=== PATIENT | female | born 1950 | race Two or more races ===

== ENCOUNTER 2021-06-15 10:44 | Emergency (ER) | payer OTHER ==
[2021-06-15 11:26] VITALS: TEMP 98.3; BMI 29.2
[2021-06-15] MEDS ORDERED: METOCLOPRAMIDE HCL 10 MG TABLET (FP) PO ONE ×2 (12:00→12:08)
[2021-06-15] MEDS ORDERED: ACETAMINOPHEN 500 MG TABLET (FP) PO ONE (12:01)
[2021-06-15] MEDS ORDERED: ACETAMINOPHEN 325 MG TABLET (FP) ONE (12:08)
[2021-06-15] MEDS ORDERED: LIDOCAINE 5% TOPICAL PATCH TP ONE (12:14)
[2021-06-15] MEDS ORDERED: LIDOCAINE 5% TOPICAL PATCH ONE (12:22)
[2021-06-15 13:25] VITALS: BP 124/54; PULSE 61
[2021-06-15] MEDS ORDERED: LIDOCAINE PATCH REMOVAL MC SCH (22:00)
== END 2021-06-15 14:11 | disposition home or self-care (01) ==
LOC: JER 10:44
DX: M54.5 Low back pain (principal); R05 Cough; I10 Essential (primary) hypertension
CPT/HCPCS: 72100-TC-FY; 93005; 93010; 99283-25

== ENCOUNTER 2022-02-21 14:18 | Emergency (ER) | payer OTHER ==
[2022-02-21 14:29] VITALS: TEMP 97.4; BMI 29.2
[2022-02-21] MEDS ORDERED: METOCLOPRAMIDE HCL INJECTION 10 MG/2 ML VIAL IVPB ONE (15:02)
[2022-02-21] MEDS ORDERED: LIDOCAINE 5% TOPICAL PATCH TP ONE (15:02)
[2022-02-21] MEDS ORDERED: ACETAMINOPHEN 1000 MG/100 ML BAG IVPB ONE (15:02)
[2022-02-21 15:57] LABS: BASO % 0.8 % (0-2.0); EOS % 8.1 % (0-4.5); HEMATOCRIT 36.9 % (32.4-45.2); HEMOGLOBIN 12.5 GM/dL (10.7-15.3); LYMPH % 40.1 % (8-40); MCH 31.5 pg (25.7-33.7); MCHC 33.8 g/dl (32.0-36.0); MEAN CELL VOLUME 93.1 fl (80-96); MEAN PLT VOLUME 8.7 fl (7.5-11.1); MONO % 8.7 % (3.8-10.2); NEUT % 42.3 % (42.8-82.8); PLATELET COUNT 196 10^3/uL (134-434); RBC 3.96 M/mm3 (3.60-5.2); RDW 14.3 % (11.6-15.6); WHITE BLOOD COUNT 6.5 K/mm3 (4.0-10.0)
[2022-02-21] MEDS ORDERED: ACETAMINOPHEN INJECTION 100 ML IVPB ONE (15:58)
[2022-02-21] MEDS ORDERED: METOCLOPRAMIDE HCL INJECTION 10 MG/2 ML VIAL ONE (15:58)
[2022-02-21] MEDS ORDERED: LIDOCAINE 5% TOPICAL PATCH ONE (15:59)
[2022-02-21 16:15] LABS: PH,URINE 5.5 (5.0-8.0); URINE APPEARANCE CLEAR; URINE BILIRUBIN NEGATIVE (NEGATIVE); URINE COLOR YELLOW; URINE GLUCOSE (UA) NEGATIVE (NEGATIVE); URINE KETONE NEGATIVE (NEGATIVE); URINE LEUK ESTERASE NEGATIVE (NEGATIVE); URINE NITRITE NEGATIVE (NEGATIVE); URINE PROTEIN NEGATIVE (NEGATIVE); URINE UROBILINOGEN 0.2 mg/dL (0.2-1.0)
[2022-02-21 16:20] LABS: ALBUMIN 3.5 g/dl (3.4-5.0); CALCIUM 9.4 mg/dL (8.5-10.1); MAGNESIUM 2.2 mg/dL (1.8-2.4)
[2022-02-21 16:21] LABS: BLOOD UREA NITROGEN 17.9 mg/dL (7-18)
[2022-02-21 16:23] LABS: CREATININE 0.7 mg/dL (0.55-1.3)
[2022-02-21 16:25] LABS: BILIRUBIN,TOTAL 0.2 mg/dL (0.2-1)
[2022-02-21 18:22] VITALS: BP 142/61; PULSE 58
[2022-02-21] MEDS ORDERED: LIDOCAINE PATCH REMOVAL MC SCH (22:00)
== END 2022-02-21 18:42 | disposition home or self-care (01) ==
LOC: JER 14:18
PROC: 3E033GC Introduction of Other Therapeutic Substance into Peripheral Vein, Percutaneous Approach (ICD-10-PCS; principal; 2022-02-21)
DX: M54.41 Lumbago with sciatica, right side (principal); I10 Essential (primary) hypertension
CPT/HCPCS: 36415; 71045-TC-FY; 80053; 81003; 83735; 84484; 85025; 87086; 93005; 93010; 99285-25

== ENCOUNTER 2022-02-22 23:24 | Emergency (ER) | payer OTHER ==
[2022-02-23 00:15] VITALS: PULSE 52; TEMP 97.7; BMI 29.9
[2022-02-23 00:50] VITALS: BP 124/76
== END 2022-02-23 00:51 | disposition home or self-care (01) ==
LOC: JER 23:24
DX: I10 Essential (primary) hypertension (principal)
CPT/HCPCS: 99281-25